=== PATIENT | male | born 1980 | race Caucasian/White ===

== ENCOUNTER 2017-11-04 12:00 | Emergency (ER) | payer MEDICAID ==
[~2017-11-04] VITALS: Ht 185.4 cm; Wt 88.6 kg
[2017-11-04] MEDS: SODIUM CHLORIDE 0.9% 1,000 ML IV ONE (13:05)
[2017-11-04] MEDS: KETOROLAC TROMETHAMINE 30 MG/ML VIAL IVP ONE (13:07)
[2017-11-04 13:46] VITALS: BP 138/65
== END 2017-11-04 13:47 | disposition home or self-care (01) ==
LOC: EMS 12:03
DX: R10.9 Unspecified abdominal pain (principal); F17.210 Nicotine dependence, cigarettes, uncomplicated
CPT/HCPCS: 74176; 81002; 96374; 99284; 99406; J1885; J7030